=== PATIENT | female | born 1995 | race Caucasian/White ===

== ENCOUNTER 2021-03-20 21:32 | Emergency (ER) | payer OTHER ==
[~2021-03-20] VITALS: Ht 160 cm; Wt 79.5 kg
[2021-03-20 21:36] VITALS: TEMP 98.2
[2021-03-20] MEDS ORDERED: AMOXICILLIN 8751 TAB PO (22:03)
[2021-03-20 22:11] VITALS: BP 133/89; PULSE 78
== END 2021-03-20 22:11 | disposition home or self-care (01) ==
LOC: COL.ER 21:32
DX: S61.451A Open bite of right hand, initial encounter (principal); W55.01XA Bitten by cat, initial encounter